=== PATIENT | female | born 1950 | race Caucasian/White ===

== ENCOUNTER 2021-09-26 13:35 | Emergency (ER) | payer MEDICARE ==
[~2021-09-26 13:35] MED LIST: KLONOPIN TAB 00.5 MG PO; LEVOTHYROXINE50 MCG PO; PROTONIX 40 MG40 M1 PO
[2021-09-26] MEDS ORDERED: HYDROCODON-ACE1 EAC4 PO (14:44)
== END 2021-09-26 15:10 | disposition home or self-care (01) ==
LOC: ER1 13:35
DX: S42.201A Unspecified fracture of upper end of right humerus, initial encounter for closed fracture (principal); W18.40XA Slipping, tripping and stumbling without falling, unspecified, initial encounter
CPT/HCPCS: 73060; 99283